=== PATIENT | female | born 1950 | race Caucasian/White ===

== ENCOUNTER 2018-02-26 15:04 | Outpatient (CLI) | payer MEDICARE, BC, SELFPAY ==
[2018-02-26 17:20] LABS: ALT 26 U/L (12-78); AST 17 U/L (15-37); Albumin 3.8 g/dL (3.4-5.0); Alkaline Phosphatase 96 U/L (46-116); Anion Gap 8.7 mmol/L (3-11); BUN 24 mg/dL (7-18); Bilirubin, Total 0.2 mg/dL (0.2-1.0); CO2 29.3 mmol/L (21.0-32.0); CREATININE 0.84 mg/dL (0.55-1.02); Calcium 9.3 mg/dL (8.5-10.1); Chloride 103 mmol/L (98-107); Ferritin 60 ng/mL (8-388); Glucose 106 mg/dL (70-100); Sodium 141 mmol/L (136-145); TSH 2.96 uIU/mL (0.358-3.74)
== END 2018-02-26 15:24 ==
PROVIDERS: PCP Internal Medicine; Visit Provider Nurse Practitioner
DX: M25.50 Pain in unspecified joint (principal); R53.83 Other fatigue
CPT/HCPCS: 36415; 80053; 82728; 84443

== ENCOUNTER 2018-05-15 14:07 | Outpatient (REF) | payer MEDICARE, BC, SELFPAY ==
[2018-05-16 11:50] LABS: Campylobacter PCR SEE COMMENTS; Salmonella PCR SEE COMMENTS; Shiga Toxin PCR SEE COMMENTS; Shigella/Enteroinvasive Ecoli SEE COMMENTS
== END 2018-05-15 14:27 ==
LOC: NCHCN 14:07
PROVIDERS: PCP Internal Medicine; Visit Provider Internal Medicine
DX: K52.9 Noninfective gastroenteritis and colitis, unspecified (principal); J18.9 Pneumonia, unspecified organism; G25.81 Restless legs syndrome
CPT/HCPCS: 87329; 87505; 82272; 83630

== ENCOUNTER 2018-06-01 15:58 | Outpatient (CLI) | payer MEDICARE, BC, SELFPAY ==
[2018-06-01 17:39] LABS: Ferritin 106 ng/mL (8-388)
== END 2018-06-01 16:18 ==
PROVIDERS: PCP Internal Medicine; Visit Provider Nurse Practitioner
DX: M25.50 Pain in unspecified joint (principal)
CPT/HCPCS: 36415; 82728

== ENCOUNTER 2018-09-03 12:51 | Outpatient (CLI) | payer MEDICARE, BC, SELFPAY ==
--- NOTE | 2018-09-03 11:15 | DI.RAD_ITS ---
SYMPTOM/DIAGNOSIS: NON PRODUCTIVE COUGH, R05 PA AND LATERAL CHEST: No priors for comparison. The heart is normal in size. The lungs are clear. The mediastinal structures and pleura appear intact. CONCLUSION: Normal chest.
== END 2018-09-03 13:11 ==
PROVIDERS: PCP Internal Medicine; Visit Provider Internal Medicine
DX: R05 Cough (principal)
CPT/HCPCS: 71046

== ENCOUNTER 2018-11-27 10:05 | Outpatient (REF) | payer MEDICARE, BC, SELFPAY ==
[2018-11-27 12:44] LABS: Anion Gap 8.5 mmol/L (3-11); BUN 19 mg/dL (7-18); CO2 29.5 mmol/L (21.0-32.0); CREATININE 0.84 mg/dL (0.55-1.02); Calcium 9.1 mg/dL (8.5-10.1); Chloride 105 mmol/L (98-107); Glucose 98 mg/dL (70-100); Potassium 4.1 mmol/L (3.5-5.1); Sodium 143 mmol/L (136-145)
== END 2018-11-27 10:25 ==
LOC: NCHCN 10:05
PROVIDERS: PCP Internal Medicine; Visit Provider Internal Medicine
DX: I10 Essential (primary) hypertension (principal)
CPT/HCPCS: 80048

== ENCOUNTER 2019-02-26 08:11 | Outpatient (REF) | payer MEDICARE, BC, SELFPAY ==
[2019-02-26 12:02] LABS: Potassium 4.3 mmol/L (3.5-5.1)
[2019-02-26 12:22] LABS: Calculated LDL 125 mg/dL; Cholesterol 200 mg/dL (<200); HDL Cholesterol 51 mg/dL (40-60); Triglyceride 122 mg/dL (<150)
== END 2019-02-26 08:31 ==
LOC: NCHCN 08:11
PROVIDERS: PCP Internal Medicine; Visit Provider Internal Medicine
DX: E78.5 Hyperlipidemia, unspecified (principal); I10 Essential (primary) hypertension
CPT/HCPCS: 80061; 84132

== ENCOUNTER 2019-09-03 01:24 | Outpatient (CLI) | payer MEDICARE, BC, SELFPAY ==
--- NOTE | 2019-09-03 07:56 | DI.MAMMO_ITS ---
EXAM: MAMMO SCREENING CLINICAL HISTORY: SCREENING,Z12.39 TECHNIQUE: Mammograms were interpreted according to the usual protocol including computer analysis w [facility] CAD system, tomosynthesis and C-view imaging. COMPARISON: FINDINGS: Breasts are moderate density with fairly symmetrical distribution of fibroglandular tissue. The patient recently reportedly ?popped? a skin lesion in the upper inner quadrant of the left breast . A marker was placed at this site and there is no underlying mass. No mass or clumped microcalcification identified in either breast. Current examination is compared w [facility] previous examinations including May 2017 and there has been no gross interval change in appe arance in comparison with the prior studies. IMPRESSION: No specific evidence of malignancy at this time. Routine screening examinations are suggested at yea rly intervals due to the family history of breast carcinoma. BI-RADS Cat 1 - Negative: Breast Density - Category B - Scattered areas of fibroglandular density:
== END 2019-09-03 01:44 ==
PROVIDERS: PCP Internal Medicine; Visit Provider Internal Medicine
DX: Z12.31 Encounter for screening mammogram for malignant neoplasm of breast (principal); Z80.3 Family history of malignant neoplasm of breast
CPT/HCPCS: 77063; 77067

== ENCOUNTER 2019-10-08 09:41 | Outpatient (CLI) | payer MEDICARE, BC, SELFPAY ==
--- NOTE | 2019-10-08 13:00 | DI.RAD_ITS ---
EXAM: XR LUMBAR SPINE COMPLETE CLINICAL HISTORY: LBP, 724.2, RT LUMBAR RADICULOPATHY, M54.16, RT LEG PAIN, M79.604. TECHNIQUE: 2D digital imaging was performed. COMPARISON: No exams were available for comparison FINDINGS: Flexion and extension lateral views were performed in addition to the routine views. Vertebral vanessa s are well maintained in height. There is moderate narrowing of the L2-3 disc space. There are smal l endplate osteophytes. Small endplate osteophytes are seen at L3-4. The L3-4 disc space is well ma intained. There is moderate narrowing of the L4-5 disc space and severe narrowing of the L5-S1 disc space. There are prominent facet degenerative changes from L3-4 through L5-S1. There is mild spondyl olisthesis at L3-4. There is no spondylolysis. There is no subluxation with flexion or extension. 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 IMPRESSION: Degenerative disc changes and facet degenerative changes, greatest at L4-5 and L5-S1. DATA REPOSITORY: RADIATION DOSE DELIVERED:
== END 2019-10-08 10:01 ==
PROVIDERS: PCP Internal Medicine; Visit Provider Neurological Surgery
DX: M54.5 Low back pain (principal); M54.16 Radiculopathy, lumbar region; M79.604 Pain in right leg; M51.16 Intervertebral disc disorders with radiculopathy, lumbar region; M47.26 Other spondylosis with radiculopathy, lumbar region
CPT/HCPCS: 72110

== ENCOUNTER 2019-10-22 04:02 | Outpatient (CLI) | payer MEDICARE, BC, SELFPAY ==
--- NOTE | 2019-10-22 | DI.RAD_ITS ---
EXAM: XR THORACIC SPINE COMPLETE he CLINICAL HISTORY: RADICULAR PAIN, M54.10,THORACIC BACK PAIN, M54.5, CHRONIC LOW BACK PAIN,. TECHNIQUE: 2D digital imaging was performed. COMPARISON: No exams were available for comparison FINDINGS: BONES: There is no fracture or destructive lesion. The vertebral bodies and posterior elements are un remarkable. DISKS:Alignment is within normal limits. Interverebral disc spaces are maintained. Flowing anterior o ssification is noted. Findings are most suggestive of DISH. SOFT TISSUE: Visualized lungs are clear. IMPRESSION: Findings most suggestive of DISH in the thoracic spine. DATA REPOSITORY: RADIATION DOSE DELIVERED:
--- NOTE | 2019-10-22 | DI.RAD_ITS ---
EXAM: XR CERVICAL SPINE COMP 4-5V CLINICAL HISTORY: RADICULAR PAIN,M54.10,. TECHNIQUE: 2D digital imaging was performed. COMPARISON: No exams were available for comparison FINDINGS: The odontoid is intact. The lateral masses are well aligned. There is normal alignment of the cervi siomara spine. There is disc space narrowing at C6-C7. Endplate osteophytes are seen at multiple levels of the cervical spine. Hypertrophic changes of the facets are seen throughout the cervical spine. Neural foraminal narrowing is seen on the left at C3-C4. No acute fracture or subluxation is seen in the cervical spine. The prevertebral soft tissues are unremarkable. IMPRESSION: Moderate degenerative changes in the cervical spine. DATA REPOSITORY: RADIATION DOSE DELIVERED:
== END 2019-10-22 04:22 ==
PROVIDERS: PCP Internal Medicine; Visit Provider Internal Medicine
DX: M54.14 Radiculopathy, thoracic region (principal); M54.5 Low back pain; M50.321 Other cervical disc degeneration at C4-C5 level
CPT/HCPCS: 72050; 72072

== ENCOUNTER 2019-11-26 16:26 | Outpatient (REF) | payer MEDICARE, BC, SELFPAY ==
[2019-11-26 21:10] LABS: BUN 19 mg/dL (7-18); CREATININE 0.93 mg/dL (0.55-1.02); Chloride 102 mmol/L (98-107); Estimated GFR 59.78 (mL/min/1.73m2); Glucose 122 mg/dL (74-106); Potassium 3.7 mmol/L (3.5-5.1); Sodium 141 mmol/L (136-145)
[2019-11-26 21:15] LABS: HCT 40.8 % (36.0-46.0); HGB 13.2 g/dL (11.2-15.7); MCHC 32.4 % (32.0-36.0); MCV 86.6 fL (80-95); Platelet Count 264 10^3/uL (130-400); RBC 4.71 10^6/uL (3.93-5.22); RDW 12.6 % (11.7-14.6)
== END 2019-11-26 16:46 ==
LOC: NCHCN 16:26
PROVIDERS: PCP Internal Medicine; Visit Provider Internal Medicine
DX: I10 Essential (primary) hypertension (principal)
CPT/HCPCS: 80048; 85027

== ENCOUNTER 2020-02-14 17:08 | Outpatient (CLI) | payer MEDICARE, BC, SELFPAY ==
--- NOTE | 2020-02-14 | DI.RAD_ITS ---
EXAM: XR KNEE LT 3V AP,LAT,KENDRICK CLINICAL HISTORY: STANDING, ACUTE ONSET LT KNEE PAIN WITH EFFUSION. TECHNIQUE: 2D digital imaging was performed. COMPARISON: No exams were available for comparison FINDINGS: Mild narrowing of the medial femoral tibial joint. Mild periarticular spurring is seen in the latera l femoral tibial joint and the posterior patella. The bones are intact and normally mineralized. No joint effusion is seen. The soft tissues are unremarkable. IMPRESSION: Mild degenerative changes of the left knee. DATA REPOSITORY: RADIATION DOSE DELIVERED:
== END 2020-02-14 17:28 ==
PROVIDERS: PCP Internal Medicine; Visit Provider Internal Medicine
DX: M17.12 Unilateral primary osteoarthritis, left knee (principal)
CPT/HCPCS: 73562

== ENCOUNTER 2020-05-30 21:21 | Outpatient (REF) | payer MEDICARE, BC, SELFPAY ==
[2020-05-30 20:59] LABS: Anion Gap 10.3 mmol/L (3-11); BUN 24 mg/dL (7-18); CO2 28.7 mmol/L (21.0-32.0); CREATININE 1.6 mg/dL (0.55-1.02); Calcium 9.1 mg/dL (8.5-10.1); Chloride 95 mmol/L (98-107); Estimated GFR 31.87 (mL/min/1.73m2); Glucose 107 mg/dL (74-106); Magnesium 2.2 mg/dL (1.8-2.4); Sodium 134 mmol/L (136-145)
== END 2020-05-30 21:22 | disposition home or self-care (01) ==
LOC: NCHCN 21:21
PROVIDERS: PCP Internal Medicine; Visit Provider Internal Medicine
DX: M79.18 Myalgia, other site (principal); I10 Essential (primary) hypertension; F43.23 Adjustment disorder with mixed anxiety and depressed mood
CPT/HCPCS: 80048; 83735

== ENCOUNTER 2020-06-07 19:22 | Outpatient (REF) | payer MEDICARE, BC, SELFPAY ==
[2020-06-07 22:06] LABS: Bilirubin Negative (Negative); Blood Negative (Negative); Clarity Clear (Clear); Glucose Negative (Negative); Ketones Negative (Negative); Leukocyte Esterase Moderate (Negative); Nitrite Negative (Negative); Urobilinogen 0.2 EU/dL (Up TO 0.2); pH 6.5 (5-8)
[2020-06-07 22:09] LABS: Bacteria Rare HPF (Negative); C & S Indicated? No/Sq. Contamination; Casts Negative LPF (Negative); Crystals Negative HPF (Negative); Epithelial Cells Moderate HPF (Negative); Mucus Negative (Negative); RBC Negative HPF (0-2)
[2020-06-07 22:17] LABS: Anion Gap 8.9 mmol/L (3-11); BUN 12 mg/dL (7-18); CO2 29.1 mmol/L (21.0-32.0); CREATININE 0.8 mg/dL (0.55-1.02); Calcium 9.2 mg/dL (8.5-10.1); Chloride 103 mmol/L (98-107); Glucose 95 mg/dL (74-106); Potassium 3.8 mmol/L (3.5-5.1); Sodium 141 mmol/L (136-145)
== END 2020-06-07 19:23 | disposition home or self-care (01) ==
LOC: NCHCN 19:22
PROVIDERS: PCP Internal Medicine; Visit Provider Family Medicine
DX: R94.4 Abnormal results of kidney function studies (principal)
CPT/HCPCS: 80048; 81003; 81015

== ENCOUNTER 2020-08-11 11:57 | Outpatient (REF) | payer MEDICARE, BC, SELFPAY ==
[2020-08-11 20:44] LABS: Anion Gap 9.2 mmol/L (3-11); BUN 22 mg/dL (7-18); CO2 26.8 mmol/L (21.0-32.0); CREATININE 0.9 mg/dL (0.55-1.02); Calcium 9.2 mg/dL (8.5-10.1); Chloride 105 mmol/L (98-107); Glucose 126 mg/dL (74-106); Potassium 4.3 mmol/L (3.5-5.1); Sodium 141 mmol/L (136-145)
== END 2020-08-11 11:58 | disposition home or self-care (01) ==
LOC: NCHCN 11:57
PROVIDERS: PCP Internal Medicine; Visit Provider Internal Medicine
DX: I10 Essential (primary) hypertension (principal); F41.8 Other specified anxiety disorders; R94.4 Abnormal results of kidney function studies
CPT/HCPCS: 80048

== ENCOUNTER 2020-11-13 01:58 | Outpatient (CLI) | payer MEDICARE, BC, SELFPAY ==
--- NOTE | 2020-11-13 07:15 | DI.MAMMO_ITS ---
Exam(s) MAMMO SCREENING EXAM: MAMMO SCREENING CLINICAL HISTORY: screening,Z12.39. TECHNIQUE: Bilateral full field digital CC and MLO mammographic images were obtained with 3D tomosyn thesis and utilizing computer aided detection (CAD). COMPARISON: Prior mammograms dating back to 2012, the most recent being August 2019. FINDINGS: There are no new spiculated masses nor malignant appearing microcalcification groups. There is no significant architectural distortion nor skin thickening-retraction. IMPRESSION: No radiographic evidence of malignancy. BI-RADS Category 1 - Negative Breast Density - Category B - Scattered areas of fibroglandular density Breast density Category C or D implies that the patient has dense breast tissue. Dense breast tissue can make it harder to find cancer on a mammogram. Dense breast tissue is also associated with an incr eased risk of breast cancer. This information about the result of the mammogram report was provided to the patient to raise their awareness. Use this report when you speak with the patient about their risks for breast cancer, which includes their family history. At that time, you may recommend additional screening tests (Ultrasoun d or MRI) as these tests may add significant information. A negative radiographic report should not delay biopsy if a dominant or clinically suspicious mass is present. Up to ten percent of cancers are not identified on mammography. A negative report may reinforce clinical impression. Adenosis and dense breasts may obscure an underlying neoplasm. False positive reports average 6 to 10%. Patient will receive a letter notifying them of these results.
== END 2020-11-13 02:18 ==
PROVIDERS: PCP Internal Medicine; Visit Provider Nurse Practitioner Women's Health
DX: Z12.31 Encounter for screening mammogram for malignant neoplasm of breast (principal)
CPT/HCPCS: 77063; 77067

== ENCOUNTER 2020-11-13 14:04 | Outpatient (REF) | payer MEDICARE, BC, SELFPAY ==
--- NOTE | 2020-11-13 13:30 | PAPFT_PTH ---
PATIENT: Martha Diaz LOC: [facility] U#:[id number] AGE/SX: 70/F ROOM: RE11/13/[address]: NIMESH Vivas : 1950 BED: DIS: 11/13/2020 SPEC #: [id number] RECD: 11/13/20 17:32 STATUS: NUNU REQ #: [id number] BAYLEE: 11/13/20 13:[address]: Brenda Sorto DEPT: [facility] Cytology RECD BY: Deb Vo ENTERED: 11/13/20 17:33 SP TYPE: PAPFT OTHR DR: Olayinka Clarke Tissues: 1 - CX/ENDOCX FOR PAP SMEARS Procedures: PAP THIN PREP/[facility] Screening HPV DNA PROBE Comments: [id number]
== END 2020-11-13 14:05 | disposition home or self-care (01) ==
LOC: LBN 14:04
PROVIDERS: PCP Internal Medicine; Visit Provider Nurse Practitioner Family
DX: Z12.4 Encounter for screening for malignant neoplasm of cervix (principal); Z11.51 Encounter for screening for human papillomavirus (HPV); Z01.419 Encounter for gynecological examination (general) (routine) without abnormal findings
CPT/HCPCS: 88142; 87624

== ENCOUNTER 2021-06-12 16:44 | Outpatient (REF) | payer MEDICARE, BC, SELFPAY ==
[2021-06-12 21:56] LABS: Anion Gap 6.3 mmol/L (3-11); BUN 25 mg/dL (7-18); CO2 29.7 mmol/L (21.0-32.0); CREATININE 0.8 mg/dL (0.55-1.02); Calcium 9.2 mg/dL (8.5-10.1); Chloride 104 mmol/L (98-107); Glucose 133 mg/dL (74-106); Potassium 4.1 mmol/L (3.5-5.1); Sodium 140 mmol/L (136-145)
== END 2021-06-12 16:45 | disposition home or self-care (01) ==
LOC: NCHCN 16:44
PROVIDERS: PCP Internal Medicine; Visit Provider Internal Medicine
DX: I10 Essential (primary) hypertension (principal)
CPT/HCPCS: 80048

== ENCOUNTER → 2022-01-16 01:24 | Outpatient (CLI) | payer MEDICARE, BC, SELFPAY ==
--- NOTE | 2022-01-16 12:52 | DI.MAMMO_ITS ---
Exam(s) MAMMO SCREENING EXAM: MAMMO SCREENING CLINICAL HISTORY: SCREENING, Z12.31. TECHNIQUE: Bilateral full field digital CC and MLO mammographic images were obtained with 3D tomosyn thesis and utilizing computer aided detection (CAD). COMPARISON: Prior mammograms were reviewed, the most recent being October 2020. FINDINGS: There has been no significant change in the appearance and distribution of the fibroglandular tissue. No new significant findings in the left breast. Small benign-appearing nodule in the right breast se en on MLO view is also unchanged from prior studies. There are no new spiculated masses nor malignant appearing microcalcification groups. There is no significant architectural distortion nor skin thickening-retraction. IMPRESSION: No radiographic evidence of malignancy. BI-RADS Category 1 - Negative Breast Density - Category B - Scattered areas of fibroglandular density Breast density Category C or D implies that the patient has dense breast tissue. Dense breast tissue can make it harder to find cancer on a mammogram. Dense breast tissue is also associated with an incr eased risk of breast cancer. This information about the result of the mammogram report was provided to the patient to raise their awareness. Use this report when you speak with the patient about their risks for breast cancer, which includes their family history. At that time, you may recommend additional screening tests (Ultrasoun d or MRI) as these tests may add significant information. A negative radiographic report should not delay biopsy if a dominant or clinically suspicious mass is present. Up to ten percent of cancers are not identified on mammography. A negative report may reinforce clinical impression. Adenosis and dense breasts may obscure an underlying neoplasm. False positive reports average 6 to 10%. Patient will receive a letter notifying them of these results.
== END ==
PROVIDERS: PCP Internal Medicine; Visit Provider Internal Medicine
DX: Z12.31 Encounter for screening mammogram for malignant neoplasm of breast (principal)
CPT/HCPCS: 77063; 77067

== ENCOUNTER 2022-02-05 17:59 | Outpatient (REF) | payer MEDICARE, BC, SELFPAY ==
[2022-02-05 15:48] LABS: D-Dimer 934 ng/mlFEU (<500)
== END 2022-02-05 18:00 | disposition home or self-care (01) ==
LOC: NCHCN 17:59
PROVIDERS: PCP Internal Medicine; Visit Provider Internal Medicine
DX: M17.11 Unilateral primary osteoarthritis, right knee (principal); M19.071 Primary osteoarthritis, right ankle and foot; M19.072 Primary osteoarthritis, left ankle and foot
CPT/HCPCS: 85379

== ENCOUNTER 2022-06-24 10:41 | Outpatient (REF) | payer MEDICARE, BC, SELFPAY ==
[2022-06-24 15:20] LABS: Anion Gap 4.7 mmol/L (3-11); BUN 22 mg/dL (7-18); CO2 30.3 mmol/L (21.0-32.0); CREATININE 0.8 mg/dL (0.55-1.02); Calcium 9.8 mg/dL (8.5-10.1); Chloride 102 mmol/L (98-107); Estimated GFR 78.24 (mL/min/1.73m2); Glucose 135 mg/dL (74-106); Potassium 4.1 mmol/L (3.5-5.1); Sodium 137 mmol/L (136-145)
== END 2022-06-24 10:42 | disposition home or self-care (01) ==
LOC: NCHCN 10:41
PROVIDERS: PCP Internal Medicine; Visit Provider Internal Medicine
DX: I10 Essential (primary) hypertension (principal); K21.9 Gastro-esophageal reflux disease without esophagitis; R13.13 Dysphagia, pharyngeal phase; J45.20 Mild intermittent asthma, uncomplicated
CPT/HCPCS: 80048

== ENCOUNTER 2022-11-01 13:11 | Outpatient (REF) | payer MEDICARE, BC, SELFPAY ==
[2022-11-01 21:52] LABS: Abs Immature Grans 0.01 10^3/uL (0.0-0.06); Absolute Basophil Count 0.03 10^3/uL (0.0-0.2); Absolute Eosinophil Count 0.12 10^3/uL (0.0-0.7); Absolute Lymphocyte Count 1.01 10^3/uL (1.2-3.4); Absolute Monocyte Count 0.49 10^3/uL (0.1-0.8); Absolute Neutrophil Count 3.15 10^3/uL (1.2-6.7); Basophils % 0.6; Eosinophils % 2.5; HCT 41.2 % (36.0-46.0); Immature Grans % 0.2; MCH 27.8 pg (27.0-33.0); MCHC 31.6 % (32.0-36.0); MCV 88 fL (80-95); MPV 12.7 fL (8.0-11.0); Monocytes % 10.2; Neutrophils % 65.5; Platelet Count 250 10^3/uL (130-400); RBC 4.67 10^6/uL (3.93-5.22); RDW 13.2 % (11.7-14.6); RDW-SD 42.7 fL; WBC 4.81 10^3/uL (4.4-10.8)
[2022-11-01 21:54] LABS: ESR 28 mm/hr (0-30)
[2022-11-01 22:23] LABS: AST 18 U/L (15-37); Albumin 3.8 g/dL (3.4-5.0); Alkaline Phosphatase 109 U/L (46-116); Anion Gap 9.3 mmol/L (3-11); BUN 13 mg/dL (7-18); Bilirubin, Total 0.4 mg/dL (0.2-1.0); CO2 29.7 mmol/L (21.0-32.0); CREATININE 0.7 mg/dL (0.55-1.02); Chloride 103 mmol/L (98-107); Estimated GFR 91.83 (mL/min/1.73m2); Glucose 101 mg/dL (74-106); Potassium 4.5 mmol/L (3.5-5.1); Sodium 142 mmol/L (136-145)
[2022-11-01 22:24] LABS: ALT 28 U/L (14-59)
== END 2022-11-01 13:12 | disposition home or self-care (01) ==
LOC: NCHCN 13:11
PROVIDERS: PCP Internal Medicine; Visit Provider Family Medicine
DX: R10.32 Left lower quadrant pain (principal); R19.7 Diarrhea, unspecified
CPT/HCPCS: 80053; 85652; 85025

== ENCOUNTER 2023-01-07 19:30 | Outpatient (REF) | payer MEDICARE, BC, SELFPAY ==
[2023-01-07 21:20] LABS: Hemoglobin A1C 6.2 % (<5.7)
[2023-01-07 21:24] LABS: Calculated LDL 133 mg/dL (<100); Cholesterol 224 mg/dL (<200); HDL Cholesterol 52 mg/dL (40-60); Triglyceride 198 mg/dL (<150); Vitamin B12 345 pg/mL (193-986)
== END 2023-01-07 19:31 | disposition home or self-care (01) ==
LOC: NCHCN 19:30
PROVIDERS: PCP Internal Medicine; Visit Provider Internal Medicine
DX: I10 Essential (primary) hypertension (principal); G25.81 Restless legs syndrome; E78.5 Hyperlipidemia, unspecified; G60.9 Hereditary and idiopathic neuropathy, unspecified
CPT/HCPCS: 80061; 82607; 83036

== ENCOUNTER 2023-07-28 15:26 | Outpatient (REF) | payer MEDICARE, BC, SELFPAY ==
[2023-07-28 20:58] LABS: Abs Immature Grans 0.03 10^3/uL (0.0-0.06); Absolute Basophil Count 0.05 10^3/uL (0.0-0.2); Absolute Eosinophil Count 0.16 10^3/uL (0.0-0.7); Absolute Lymphocyte Count 1.24 10^3/uL (1.2-3.4); Absolute Monocyte Count 0.45 10^3/uL (0.1-0.8); Absolute Neutrophil Count 4.25 10^3/uL (1.2-6.7); Basophils % 0.8; Eosinophils % 2.6; HCT 41.9 % (36.0-46.0); HGB 13.3 g/dL (11.2-15.7); Immature Grans % 0.5; Lymphocytes % 20.1; MCH 28.2 pg (27.0-33.0); MCHC 31.7 % (32.0-36.0); MCV 89 fL (80-95); MPV 12.9 fL (8.0-11.0); Monocytes % 7.3; Neutrophils % 68.7; Platelet Count 255 10^3/uL (130-400); RBC 4.71 10^6/uL (3.93-5.22); RDW 13.1 % (11.7-14.6); RDW-SD 42.9 fL; WBC 6.18 10^3/uL (4.4-10.8)
[2023-07-28 21:01] LABS: ESR 38 mm/hr (0-30)
[2023-07-28 21:20] LABS: ALT 29 U/L (14-59); AST 17 U/L (15-37); Alkaline Phosphatase 106 U/L (46-116); Anion Gap 8.1 mmol/L (3-11); BUN 14 mg/dL (7-18); Bilirubin, Total 0.3 mg/dL (0.2-1.0); CO2 30.9 mmol/L (21.0-32.0); CREATININE 0.7 mg/dL (0.55-1.02); Calcium 9.9 mg/dL (8.5-10.1); Chloride 103 mmol/L (98-107); Estimated GFR 91.26 (mL/min/1.73m2); Glucose 91 mg/dL (74-106); Potassium 4.6 mmol/L (3.5-5.1); Sodium 142 mmol/L (136-145); TSH (W/Ref FT4) 2.33 uIU/mL (0.36-3.74); Total Protein 7.1 g/dL (6.4-8.2)
[2023-07-28 21:43] LABS: Ferritin 57 ng/mL (8-252)
== END 2023-07-28 15:27 | disposition home or self-care (01) ==
LOC: NCHCN 15:26
PROVIDERS: PCP Internal Medicine; Visit Provider Family Medicine
DX: I10 Essential (primary) hypertension (principal); M79.7 Fibromyalgia
CPT/HCPCS: 80053; 85652; 82728; 84443; 85025

== ENCOUNTER 2023-10-23 22:03 | Outpatient (REF) | payer MEDICARE, BC, SELFPAY ==
[2023-10-23 21:51] LABS: ESR 31 mm/hr (0-30)
== END 2023-10-23 22:04 | disposition home or self-care (01) ==
LOC: NCHCN 22:03
PROVIDERS: PCP Internal Medicine; Visit Provider Family Medicine
DX: M35.3 Polymyalgia rheumatica (principal)
CPT/HCPCS: 85652

== ENCOUNTER 2023-11-12 17:40 | Outpatient (REF) | payer MEDICARE, BC, SELFPAY ==
--- NOTE | 2023-11-12 16:00 | PAPFT_PTH ---
PATIENT: Martha Diaz LOC: [facility] U#:[id number] AGE/SX: 73/F ROOM: RE11/12/[address]: Mariah Gorman MD : 1950 BED: DIS: 11/12/2023 SPEC #: [id number] RECD: 11/12/23 18:25 STATUS: NUNU REQ #: [id number] BAYLEE: 11/12/23 16:[address]: Mariah Gorman DEPT: [facility] Cytology RECD BY: Deb Vo ENTERED: 11/12/23 18:26 SP TYPE: PAPFT OTHR DR: Olayinka Clarke Tissues: 1 - CX/ENDOCX FOR PAP SMEARS Procedures: PAP THIN PREP/UVM Screening HPV DNA PROBE Comments: [id number] (HPV 16 & 18/45)
== END 2023-11-12 17:41 | disposition home or self-care (01) ==
LOC: LBN 17:40
PROVIDERS: PCP Internal Medicine; Visit Provider Obstetrics & Gynecology
DX: Z11.51 Encounter for screening for human papillomavirus (HPV) (principal); Z01.411 Encounter for gynecological examination (general) (routine) with abnormal findings
CPT/HCPCS: 88142; 87624

== ENCOUNTER 2023-11-19 15:08 | Outpatient (REF) | payer MEDICARE, BC, SELFPAY ==
[2023-11-19 14:57] LABS: Abs Immature Grans 0.04 10^3/uL (0.0-0.06); Absolute Basophil Count 0.04 10^3/uL (0.0-0.2); Absolute Eosinophil Count 0.09 10^3/uL (0.0-0.7); Absolute Lymphocyte Count 0.73 10^3/uL (1.2-3.4); Absolute Neutrophil Count 7.31 10^3/uL (1.2-6.7); Basophils % 0.5 %; HCT 42.5 % (36.0-46.0); HGB 13.2 g/dL (11.2-15.7); Immature Grans % 0.5 %; Lymphocytes % 8.5 %; MCH 28.9 pg (27.0-33.0); MCHC 31.1 % (32.0-36.0); MCV 93 fL (80-95); MPV 12.4 fL (8.0-11.0); Monocytes % 4.6 %; Neutrophils % 84.9 %; Platelet Count 281 10^3/uL (130-400); RBC 4.57 10^6/uL (3.93-5.22); RDW 13.4 % (11.7-14.6); RDW-SD 46.2 fL; WBC 8.61 10^3/uL (4.4-10.8)
[2023-11-19 15:03] LABS: ESR 17 mm/hr (0-30)
[2023-11-19 15:49] LABS: ALT 31 U/L (14-59); AST 15 U/L (15-37); Albumin 3.8 g/dL (3.4-5.0); Alkaline Phosphatase 77 U/L (46-116); Anion Gap 7.3 mmol/L (3-11); BUN 24 mg/dL (7-18); Bilirubin, Total 0.37 mg/dL (0.2-1.0); CO2 30.7 mmol/L (21.0-32.0); CREATININE 0.9 mg/dL (0.55-1.02); Calcium 9.1 mg/dL (8.5-10.1); Chloride 104 mmol/L (98-107); Glucose 145 mg/dL (74-106); Potassium 4.3 mmol/L (3.5-5.1); Sodium 142 mmol/L (136-145); Total Protein 6.8 g/dL (6.4-8.2)
== END 2023-11-19 15:09 | disposition home or self-care (01) ==
LOC: NCHCN 15:08
PROVIDERS: PCP Family Medicine; Visit Provider Family Medicine
DX: M35.3 Polymyalgia rheumatica (principal)
CPT/HCPCS: 80053; 85652; 81003; 85025

== ENCOUNTER 2024-08-16 17:12 | Outpatient (REF) | payer MEDICARE, BC, SELFPAY ==
[2024-08-16 21:48] LABS: ESR 28 mm/hr (0-30)
== END 2024-08-16 17:13 | disposition home or self-care (01) ==
LOC: NCHCN 17:12
PROVIDERS: PCP Family Medicine; Visit Provider Family Medicine
DX: M35.3 Polymyalgia rheumatica (principal)
CPT/HCPCS: 85652